=== PATIENT | female | born 1980 | race Two or more races ===

== ENCOUNTER 2019-10-16 08:30 | Day surgery (SDC) | payer OTHER ==
[~2019-10-16 08:30] MED LIST: NO
== END 2019-10-16 22:45 | disposition home or self-care (01) ==
LOC: CIR.AMB 08:30
PROVIDERS: ATTEND Obstetrics & Gynecology
DX: C53.8 Malignant neoplasm of overlapping sites of cervix uteri (principal); N72 Inflammatory disease of cervix uteri; Z20.828 Contact with and (suspected) exposure to other viral communicable diseases